=== PATIENT | male | born 1965 | race Two or more races ===

== ENCOUNTER 2023-07-03 21:29 | Inpatient (IN) | payer OTHER ==
[~2023-07-03] VITALS: Ht 180.3 cm; Wt 95.0 kg
[2023-07-03 22:30] VITALS: PULSE 107; RESP 16; O2SAT 98
[2023-07-03 22:38] LABS: Basophils # (auto) 0 10 ^3/uL (0-0.2); Basophils % (auto) 0.3 % (0.0-2.0); Eosinophils # (auto) 0 10 ^3/uL (0-0.8); Eosinophils % (auto) 0.1 % (0.0-7.0); Hematocrit 42.9 % (41.0-53.0); Hemoglobin 14.1 g/dL (13.5-17.5); Lymphocytes # (auto) 0.4 10 ^3/uL (0.4-5.4); Lymphocytes % (auto) 8.1 % (10.0-50.0); Mean Corpuscular Hemoglobin 30.1 pg (28.0-32.0); Mean Corpuscular Volume 91.1 fL (80.0-100.0); Monocytes # (auto) 0.1 10 ^3/uL (0-1.3); Monocytes % (auto) 2.7 % (0.0-12.0); Neutrophils # (auto) 4.8 10 ^3/uL (1.6-8.6); Neutrophils % (auto) 88.8 % (37.0-80.0); Nucleated Red Blood Cells % 0.1 %; Red Cell Distribution Width 13.9 % (11.8-14.3); White Blood Cell 5.4 10^3/uL (4.4-10.8)
[2023-07-03 22:44] LABS: Anion Gap 8 (5-15); Carbon Dioxide 26 mmol/L (20-30); Chloride 105 mmol/L (98-107); Potassium 4.4 mmol/L (3.5-5.1); Sodium 139 mmol/L (136-145)
[2023-07-03 22:45] LABS: Calcium 9.1 mg/dL (8.7-10.4)
[2023-07-03 22:49] LABS: Glucose 282 mg/dL (74-106)
[2023-07-03 22:50] LABS: Alkaline Phosphatase 72 U/L (46-116); BUN/Creatinine Ratio 7.5 (10.0-20.0); Blood Urea Nitrogen 11 mg/dL (9-23); Magnesium 1.9 mg/dL (1.6-2.6)
[2023-07-03 22:51] LABS: Albumin 4.4 g/dL (3.2-4.8); Aspartate Aminotransferase 26 U/L (13-40)
[2023-07-03 22:52] LABS: Bilirubin, Total 0.5 mg/dL (0.2-1.0); Total Protein 6.9 g/dL (5.7-8.2)
[2023-07-03 22:53] LABS: INR 1.09 (0.9-1.15); Partial Thromboplastin Time 27.9 SEC (24.5-34.5); Prothrombin Time 11.4 sec (9.3-11.8)
[2023-07-03 23:11] LABS: Alanine Aminotransferase 75 U/L (7-40)
[2023-07-04] VITALS (7 sets, daily range): BP systolic 93–121; BP diastolic 54–90; PULSE 70–99; RESP 18–22; TEMP 97.9–98.3; O2SAT 95–100
[2023-07-04] MEDS ORDERED: FUROSEMIDE 20 MG TAB PO ONE (02:15)
[2023-07-04] MEDS ORDERED: ASPirin 81 mg TAB PO ONE (02:15)
[2023-07-04] MEDS ORDERED: NITROGLYCERIN 0.4 MG SL TAB SL ONE (02:15)
[2023-07-04] MEDS ORDERED: ONDANSETRON HCL 4 MG/2 ML VIAL IV PRN (02:30)
[2023-07-04] MEDS ORDERED: DOCUSATE SOD 100 MG CAP PO PRN (02:30)
[2023-07-04] MEDS ORDERED: IBUPROFEN 600 MG TAB PO PRN (02:30)
[2023-07-04] MEDS ORDERED: HYDROcodone-ACET 5/325MG TAB PO PRN (02:30)
[2023-07-04] MEDS ORDERED: DEXTROSE (50%) 50ML SYRG IV PRN (02:30)
[2023-07-04] MEDS ORDERED: NITROGLYCERIN 0.4 MG SL TAB SL PRN (03:30)
[2023-07-04] MEDS ORDERED: MORPHINE SULFATE INJ 2 MG/ml SYRG IV PRN (03:30)
[2023-07-04 03:33] LABS: Urine Bacteria NONE SEEN /hpf (None Seen); Urine Blood Negative /uL (Negative); Urine Clarity Clear (Clear); Urine Color Yellow (Yellow); Urine Hyaline Cast FEW /lpf (0 - 2); Urine Mucus FEW (None Seen); Urine Protein, UAD TRACE (Negative); Urine Specific Gravity 1.019 (1.001-1.035); Urine Urobilinogen Normal (Negative); Urine WBC 2 /hpf (0 - 3); Urine pH 5.5 (5.0-8.0)
[2023-07-04 03:53] LABS: Amphetamine Screen, Urine Pos (NEGATIVE); Barbiturate Scree,Urine Neg (NEGATIVE); Benzodiazephine Screen, Urine Neg (NEGATIVE)
[2023-07-04 03:54] LABS: Cannabinoid Screen, Urine Pos (NEGATIVE); Cocaine Screen, Urine Neg (NEGATIVE); Opiate Scree,Urine Neg (NEGATIVE); Phencyclidine Screen, Urine Neg (NEGATIVE)
[2023-07-04] MEDS ORDERED: dilTIAZem 25 MG/5 ML VIAL IV ONE ×2 (04:00→06:00)
[2023-07-04 04:06] LABS: COVID19 ANTIGEN SOFIA FIA NEGATIVE (NEGATIVE); Rapid Influenza A Negative (Negative); Rapid Influenza B Negative (Negative)
[2023-07-04 05:54] LABS: Alanine Aminotransferase 70 U/L (7-40); Albumin 4.4 g/dL (3.2-4.8); Alkaline Phosphatase 66 U/L (46-116); Calcium 9.4 mg/dL (8.5-10.1); Carbon Dioxide 25 mmol/L (20-30); Chloride 105 mmol/L (98-107); Potassium 4.1 mmol/L (3.5-5.1)
[2023-07-04 05:55] LABS: Anion Gap 9 (5-15); Aspartate Aminotransferase 24 U/L (13-40); BUN/Creatinine Ratio 13.5 (10.0-20.0); Bilirubin, Total 0.7 mg/dL (0.2-1.0); Blood Urea Nitrogen 13 mg/dL (9-23); Glucose 118 mg/dL (74-106); Sodium 139 mmol/L (136-145); Total Protein 6.9 g/dL (5.7-8.2)
[2023-07-04 05:56] LABS: Basophils # (auto) 0 10 ^3/uL (0-0.2); Basophils % (auto) 0.4 % (0.0-2.0); Eosinophils # (auto) 0 10 ^3/uL (0-0.8); Hemoglobin 14.6 g/dL (13.5-17.5); Lymphocytes # (auto) 0.8 10 ^3/uL (0.4-5.4); Lymphocytes % (auto) 11.5 % (10.0-50.0); Mean Corpuscular Hemoglobin 30.3 pg (28.0-32.0); Mean Corpuscular Hgb Conc. 33.2 g/dL (32.0-36.0); Mean Corpuscular Volume 91.2 fL (80.0-100.0); Monocytes # (auto) 0.4 10 ^3/uL (0-1.3); Monocytes % (auto) 4.8 % (0.0-12.0); Neutrophils # (auto) 6.1 10 ^3/uL (1.6-8.6); Neutrophils % (auto) 83.3 % (37.0-80.0); Nucleated Red Blood Cells % 0.1 %; Red Blood Cells 4.83 10^6/uL (4.5-5.90); White Blood Cell 7.3 10^3/uL (4.4-10.8)
[2023-07-04] MEDS: SODIUM CHLOR 0.9% PF (SALINE LOCK) 10ML VIAL/SYR IV SCH ×3 (06:05→22:13)
[2023-07-04] MEDS ORDERED: InsuLIN REG 1unit/0.01ml Soln (100units/ml) SC SCH ×2 (07:00→22:00)
[2023-07-04] MEDS: ACCU-CHEK COMFORT CURVE STRIP VI SCH ×4 (07:00→22:18)
[2023-07-04] MEDS: CARVEDILOL 3.125 MG TAB PO SCH ×2 (09:49→22:15)
[2023-07-04] MEDS ORDERED: ASPirin 81 mg TAB PO SCH (10:00)
[2023-07-04] MEDS ORDERED: FUROSEMIDE 40 MG/4 ML VIAL IV SCH (10:00)
[2023-07-04] MEDS ORDERED: MAGNESIUM OXIDE 400 MG TAB PO ONE (11:00)
[2023-07-04] MEDS ORDERED: HYDR25TA4 PO (13:30)
[2023-07-04] MEDS ORDERED: LOSA25TA15 PO (13:30)
[2023-07-04] MEDS: FUROSEMIDE 40 MG/4 ML VIAL IV SCH (17:10)
[2023-07-05] VITALS (7 sets, daily range): BP systolic 98–136; BP diastolic 48–99; PULSE 49–96; RESP 17–20; TEMP 97.6–98.5; O2SAT 91–98
[2023-07-05] MEDS: SODIUM CHLOR 0.9% PF (SALINE LOCK) 10ML VIAL/SYR IV SCH ×3 (06:05→23:14)
[2023-07-05] MEDS: ACCU-CHEK COMFORT CURVE STRIP VI SCH ×4 (06:05→23:14)
[2023-07-05] MEDS: FUROSEMIDE 40 MG/4 ML VIAL IV SCH ×2 (06:05→17:45)
[2023-07-05 06:45] LABS: Basophils # (auto) 0.1 10 ^3/uL (0-0.2); Basophils % (auto) 0.7 % (0.0-2.0); Eosinophils # (auto) 0.1 10 ^3/uL (0-0.8); Eosinophils % (auto) 1.3 % (0.0-7.0); Hematocrit 48.8 % (41.0-53.0); Hemoglobin 16.5 g/dL (13.5-17.5); Lymphocytes # (auto) 2.4 10 ^3/uL (0.4-5.4); Lymphocytes % (auto) 29.4 % (10.0-50.0); Mean Corpuscular Hemoglobin 30.5 pg (28.0-32.0); Mean Corpuscular Hgb Conc. 33.7 g/dL (32.0-36.0); Mean Corpuscular Volume 90.4 fL (80.0-100.0); Monocytes # (auto) 0.7 10 ^3/uL (0-1.3); Monocytes % (auto) 8.2 % (0.0-12.0); Neutrophils % (auto) 60.4 % (37.0-80.0); Nucleated Red Blood Cells % 0.2 %; Red Cell Distribution Width 13.9 % (11.8-14.3); White Blood Cell 8.3 10^3/uL (4.4-10.8)
[2023-07-05 06:55] LABS: Alanine Aminotransferase 49 U/L (7-40); Albumin 4.3 g/dL (3.2-4.8); Alkaline Phosphatase 71 U/L (46-116); Aspartate Aminotransferase 17 U/L (13-40); BUN/Creatinine Ratio 16.2 (10.0-20.0); Bilirubin, Total 0.5 mg/dL (0.2-1.0); Blood Urea Nitrogen 17 mg/dL (9-23); Calcium 9.2 mg/dL (8.5-10.1); Chloride 103 mmol/L (98-107); Glucose 143 mg/dL (74-106); Potassium 4.2 mmol/L (3.5-5.1); Sodium 141 mmol/L (136-145); Total Protein 6.9 g/dL (5.7-8.2)
[2023-07-05] MEDS ORDERED: EMPAGLIFLOZIN 10 MG TAB PO SCH (07:00)
[2023-07-05 07:04] LABS: Anion Gap 5 (5-15); Carbon Dioxide 29 mmol/L (20-30)
[2023-07-05] MEDS: SPIRONOLACTONE 25 MG TAB PO SCH (10:04)
[2023-07-05] MEDS: LISINOPRIL 10 MG TAB PO SCH (10:04)
[2023-07-05] MEDS: CARVEDILOL 3.125 MG TAB PO SCH ×2 (10:05→23:17)
[2023-07-06] MEDS ORDERED: LOSA100T25 PO (00:39)
[2023-07-06] MEDS ORDERED: DICL75TA3 PO (00:51)
[2023-07-06] MEDS ORDERED: GABA100C PO (00:51)
[2023-07-06] MEDS ORDERED: CYCL-611 PO (00:51)
[2023-07-06 05:45] VITALS: BP 119/71; PULSE 86; RESP 20; TEMP 97.8; O2SAT 96
[2023-07-06] MEDS: ACCU-CHEK COMFORT CURVE STRIP VI SCH ×2 (06:50→11:34)
[2023-07-06] MEDS: FUROSEMIDE 40 MG/4 ML VIAL IV SCH ×2 (06:50→18:48)
[2023-07-06] MEDS: SODIUM CHLOR 0.9% PF (SALINE LOCK) 10ML VIAL/SYR IV SCH ×3 (06:50→22:04)
[2023-07-06 08:00] VITALS: BP 113/69; PULSE 53; PULSE 92; RESP 16; TEMP 98.3; O2SAT 96
[2023-07-06 09:00] VITALS: BP 113/69; PULSE 53; RESP 18; TEMP 98.3; O2SAT 96
[2023-07-06] MEDS: CARVEDILOL 3.125 MG TAB PO SCH ×2 (09:54→22:04)
[2023-07-06] MEDS: LISINOPRIL 10 MG TAB PO SCH (09:55)
[2023-07-06] MEDS: SPIRONOLACTONE 25 MG TAB PO SCH (09:55)
[2023-07-06] MEDS: AMIODARONE HCL 200 MG TAB PO SCH ×3 (10:00→22:03)
[2023-07-06] MEDS: APIXABAN 5 MG TAB PO SCH ×2 (10:00→22:03)
[2023-07-06] MEDS ORDERED: HYDR25TA5 PO (11:33)
[2023-07-06 12:57] VITALS: BP 122/90; PULSE 71; RESP 20; TEMP 98; O2SAT 92
[2023-07-06 20:00] VITALS: BP 105/66; PULSE 89; PULSE 95; RESP 20; TEMP 98.6; O2SAT 91
[2023-07-06 22:00] VITALS: BP 105/66; PULSE 95; RESP 20; TEMP 98.6; O2SAT 91
[2023-07-07] VITALS (7 sets, daily range): BP systolic 104–133; BP diastolic 70–92; PULSE 45–132; RESP 17–20; TEMP 98–98.5; O2SAT 94–96
[2023-07-07 05:33] LABS: Basophils # (auto) 0.1 10 ^3/uL (0-0.2); Eosinophils # (auto) 0.2 10 ^3/uL (0-0.8); Hemoglobin 17.8 g/dL (13.5-17.5); Monocytes # (auto) 0.6 10 ^3/uL (0-1.3); Neutrophils # (auto) 3.2 10 ^3/uL (1.6-8.6); White Blood Cell 6.6 10^3/uL (4.4-10.8)
[2023-07-07 05:37] LABS: Eosinophils % (auto) 3.6 % (0.0-7.0); Hematocrit 51.8 % (41.0-53.0); Lymphocytes # (auto) 2.5 10 ^3/uL (0.4-5.4); Lymphocytes % (auto) 37.6 % (10.0-50.0); Mean Corpuscular Hemoglobin 30.4 pg (28.0-32.0); Mean Corpuscular Hgb Conc. 34.3 g/dL (32.0-36.0); Mean Corpuscular Volume 88.7 fL (80.0-100.0); Monocytes % (auto) 9.7 % (0.0-12.0); Neutrophils % (auto) 48.1 % (37.0-80.0); Nucleated Red Blood Cells % 0.6 %; Red Blood Cells 5.84 10^6/uL (4.5-5.90); Red Cell Distribution Width 13.7 % (11.8-14.3)
[2023-07-07 05:42] LABS: Anion Gap 9 (5-15); Carbon Dioxide 29 mmol/L (20-30); Chloride 101 mmol/L (98-107); Potassium 4.1 mmol/L (3.5-5.1); Sodium 139 mmol/L (136-145)
[2023-07-07 05:43] LABS: Calcium 9.4 mg/dL (8.5-10.1)
[2023-07-07 05:47] LABS: BUN/Creatinine Ratio 17.9 (10.0-20.0); Blood Urea Nitrogen 17 mg/dL (9-23); Glucose 126 mg/dL (74-106)
[2023-07-07] MEDS: SODIUM CHLOR 0.9% PF (SALINE LOCK) 10ML VIAL/SYR IV SCH ×3 (06:00→21:50)
[2023-07-07] MEDS: FUROSEMIDE 40 MG/4 ML VIAL IV SCH (06:01)
[2023-07-07] MEDS ORDERED: AMIO200T33 PO (09:56)
[2023-07-07] MEDS ORDERED: FURO1TAB33 PO ×2 (09:56)
[2023-07-07] MEDS ORDERED: CAR3125T PO ×2 (09:56)
[2023-07-07] MEDS ORDERED: LISI10TA34 PO (09:56)
[2023-07-07] MEDS ORDERED: SPIR25TA PO (09:56)
[2023-07-07] MEDS ORDERED: APIX5TAB PO (09:56)
[2023-07-07] MEDS: SPIRONOLACTONE 25 MG TAB PO SCH (10:36)
[2023-07-07] MEDS: LISINOPRIL 10 MG TAB PO SCH (10:38)
[2023-07-07] MEDS: AMIODARONE HCL 200 MG TAB PO SCH ×2 (10:39→21:50)
[2023-07-07] MEDS: APIXABAN 5 MG TAB PO SCH ×2 (10:40→21:50)
[2023-07-07] MEDS ORDERED: CARVEDILOL 3.125 MG TAB PO ONE (11:00)
[2023-07-07] MEDS: FUROSEMIDE 20 MG TAB PO SCH (18:14)
[2023-07-07] MEDS: CARVEDILOL 3.125 MG TAB PO SCH (21:52)
[2023-07-08 04:46] VITALS: BP 104/68; PULSE 89; RESP 18; TEMP 98; O2SAT 96
[2023-07-08 06:27] LABS: Chloride 102 mmol/L (98-107); Potassium 4.3 mmol/L (3.5-5.1); Sodium 137 mmol/L (136-145)
[2023-07-08 06:28] LABS: Anion Gap 7 (5-15); Basophils # (auto) 0.1 10 ^3/uL (0-0.2); Calcium 9.5 mg/dL (8.5-10.1); Carbon Dioxide 28 mmol/L (20-30); Eosinophils # (auto) 0.2 10 ^3/uL (0-0.8); Lymphocytes % (auto) 38.3 % (10.0-50.0); Neutrophils # (auto) 3.1 10 ^3/uL (1.6-8.6); Nucleated Red Blood Cells % 0.3 %
[2023-07-08 06:31] LABS: Eosinophils % (auto) 3.6 % (0.0-7.0); Hematocrit 51.6 % (41.0-53.0); Hemoglobin 17.9 g/dL (13.5-17.5); Lymphocytes # (auto) 2.5 10 ^3/uL (0.4-5.4); Mean Corpuscular Hemoglobin 30.8 pg (28.0-32.0); Mean Corpuscular Hgb Conc. 34.7 g/dL (32.0-36.0); Mean Corpuscular Volume 88.6 fL (80.0-100.0); Monocytes # (auto) 0.6 10 ^3/uL (0-1.3); Monocytes % (auto) 9.6 % (0.0-12.0); Neutrophils % (auto) 47.5 % (37.0-80.0); Red Blood Cells 5.82 10^6/uL (4.5-5.90); Red Cell Distribution Width 13.9 % (11.8-14.3); White Blood Cell 6.5 10^3/uL (4.4-10.8)
[2023-07-08 06:33] LABS: Glucose 128 mg/dL (74-106)
[2023-07-08] MEDS: FUROSEMIDE 20 MG TAB PO SCH (06:33)
[2023-07-08] MEDS: SODIUM CHLOR 0.9% PF (SALINE LOCK) 10ML VIAL/SYR IV SCH ×2 (06:33→14:06)
[2023-07-08 06:34] LABS: BUN/Creatinine Ratio 19.4 (10.0-20.0); Blood Urea Nitrogen 18 mg/dL (9-23)
[2023-07-08 08:00] VITALS: BP 104/81; PULSE 79; PULSE 89; RESP 18; TEMP 98.2; O2SAT 94
[2023-07-08 09:20] VITALS: BP 104/81; PULSE 89; RESP 18; TEMP 98.2; O2SAT 94
[2023-07-08] MEDS ORDERED: CARV6.2551 PO (10:01)
[2023-07-08] MEDS ORDERED: FURO1TAB33 PO (10:03)
[2023-07-08] MEDS: LISINOPRIL 10 MG TAB PO SCH (10:43)
[2023-07-08] MEDS: AMIODARONE HCL 200 MG TAB PO SCH (10:43)
[2023-07-08] MEDS: CARVEDILOL 3.125 MG TAB PO SCH (10:43)
[2023-07-08] MEDS: SPIRONOLACTONE 25 MG TAB PO SCH (10:43)
[2023-07-08] MEDS: APIXABAN 5 MG TAB PO SCH (10:44)
[2023-07-08 12:53] VITALS: BP 102/60; PULSE 66; RESP 19; TEMP 98.4; O2SAT 95
== END 2023-07-08 14:00 | disposition home or self-care (01) | DRG 194 ==
LOC: ER 21:29 → TELE 07-04 03:29 → TELE-WESTW 07-04 06:22
PROVIDERS: ADMIT Internal Medicine Pulmonary Disease; ATTEND Student in an Organized Health Care Education/Training Program
DX: I11.0 Hypertensive heart disease with heart failure (principal); N17.9 Acute kidney failure, unspecified; I50.23 Acute on chronic systolic (congestive) heart failure; I42.8 Other cardiomyopathies; I47.19 Other supraventricular tachycardia; E66.9 Obesity, unspecified; F15.10 Other stimulant abuse, uncomplicated; F10.10 Alcohol abuse, uncomplicated; E11.65 Type 2 diabetes mellitus with hyperglycemia; F17.200 Nicotine dependence, unspecified, uncomplicated; G47.30 Sleep apnea, unspecified; Z20.822 Contact with and (suspected) exposure to COVID-19; I48.0 Paroxysmal atrial fibrillation; G89.4 Chronic pain syndrome; F19.10 Other psychoactive substance abuse, uncomplicated; Z91.148 Patient's other noncompliance with medication regimen for other reason; Z79.84 Long term (current) use of oral hypoglycemic drugs; Z91.199 Patient's noncompliance with other medical treatment and regimen due to unspecified reason; Z68.29 Body mass index [BMI] 29.0-29.9, adult; Z71.6 Tobacco abuse counseling; Y92.89 Other specified places as the place of occurrence of the external cause
CPT/HCPCS: 36415; 71045; 80048; 80053; 80307; 81001; 82962; 83036; 83735; 83880; 84443; 84484; 85025; 85610; 85730; 87426; 87804; 93005; 93306; 96374; 96376; 99291; G0378; J1815

== ENCOUNTER 2024-10-31 15:35 | Inpatient (IN) | payer MEDICAID, OTHER ==
[~2024-10-31] VITALS: Ht 180.3 cm; Wt 107.2 kg
[~2024-10-31 15:35] MED LIST: AMIO200T33 PO; APIX5TAB PO; CARV6.2551 PO; FURO1TAB33 PO; HYDR25TA5 PO; LISI10TA34 PO; LOSA100T25 PO; SPIR25TA PO
[2024-10-31] MEDS: SODIUM CHLORIDE 0.9% 1,000 ML IV ONE (16:00)
--- NOTE | 2024-10-31 16:03 | ECG ---
[facility] Test Date: 2024-10-31 Test Time: 15:50:01 Pat Name: SARAHI RG Department: ER Room: Gender: M Rough Rounder: ANTONIA : 1965 Requested By: WENDY GOOD Order Number: [id number] Reading MD: Measurements Intervals [place] Rate: 106 P: 28 MT: 150 QRS: -74 QRSD: 100 T: 64 QT: 344 QTc: 457 Interpretive Statements Sinus tachycardia Markedly posterior QRS axis Low voltage, extremity leads Please click the below link to view image of tracing.
[2024-10-31 16:31] LABS: Basophils # (auto) 0 10 ^3/uL (0-0.2); Basophils % (auto) 0.7 % (0.0-2.0); Eosinophils # (auto) 0.2 10 ^3/uL (0-0.8); Eosinophils % (auto) 2.3 % (0.0-7.0); Hematocrit 44.6 % (41.0-53.0); Lymphocytes # (auto) 2.2 10 ^3/uL (0.4-5.4); Lymphocytes % (auto) 28.9 % (10.0-50.0); Mean Corpuscular Hemoglobin 30.5 pg (28.0-32.0); Mean Corpuscular Hgb Conc. 33.7 g/dL (32.0-36.0); Mean Corpuscular Volume 90.5 fL (80.0-100.0); Monocytes # (auto) 0.7 10 ^3/uL (0-1.3); Monocytes % (auto) 8.8 % (0.0-12.0); Neutrophils # (auto) 4.5 10 ^3/uL (1.6-8.6); Neutrophils % (auto) 59.3 % (37.0-80.0); Nucleated Red Blood Cells % 0.2 %; Platelet Count (auto) 205 10^3/uL (140-450); Red Blood Cells 4.93 10^6/uL (4.5-5.90); Red Cell Distribution Width 13.8 % (11.8-14.3); White Blood Cell 7.6 10^3/uL (4.4-10.8)
[2024-10-31 16:58] VITALS: PULSE 93; RESP 12; O2SAT 92
[2024-10-31 17:10] LABS: Anion Gap 12 (5-15); Carbon Dioxide 22 mmol/L (20-31); Chloride 104 mmol/L (98-107); Sodium 138 mmol/L (136-145)
[2024-10-31 17:11] LABS: Calcium 9.8 mg/dL (8.7-10.4)
--- NOTE | 2024-10-31 17:13 | DVH ---
EXAM: CT HEAD WITHOUT CONTRAST HISTORY: dizzy, hypotensive COMPARISON: None TECHNIQUE: Axial images were obtained and reformatted in coronal and sagittal planes. All CT scans at this medical facility are performed using dose modulation techniques as appropriate t o a performed exam including the following: Automated exposure control was utilized; adjustment of th e MA and/or KV according to patient size; and use of iterative reconstruction technique. CT Dose: CTDI volume is 58.1 mGy. Dose-length product is 931.25 mGy*cm FINDINGS: Supratentorial Region: No evidence for large acute territorial ischemia. No intracranial hemorrhage is noted. Posterior Fossa: No acute abnormality. Brainstem: Unremarkable. Sellar/Suprasellar Region: Unremarkable. Ventricles, Cisterns, Sulci: Age-appropriate. Orbits: Unremarkable. Paranasal Sinuses: Unremarkable. Mastoid Air Cells: Unremarkable. Vasculature: Unremarkable. Bones/Soft Tissues: No acute abnormality. Other: None. IMPRESSION: 1. No acute intracranial process.
[2024-10-31 17:16] LABS: BUN/Creatinine Ratio 12.5 (10.0-20.0); Blood Urea Nitrogen 16 mg/dL (9-23); Glucose 101 mg/dL (74-106); Lipase 43 U/L (12-53); Magnesium 2.2 mg/dL (1.6-2.6)
[2024-10-31 17:18] LABS: Phosphorus 4.1 mg/dL (2.4-5.1)
--- NOTE | 2024-10-31 17:19 | DVH ---
CHEST RADIOGRAPH Indication: cxr Technique: Single frontal view of the chest was obtained COMPARISON: XY CHEST PORTABLE on DOS: 07/06/23, XY CHEST PORTABLE on DOS: 07/03/23 FINDINGS: Lines and Tubes: None Lungs: Clear Pleura: No effusion. No pneumothorax. Cardiomediastinal contours: Unremarkable Bones: Unremarkable IMPRESSION: No acute disease.
--- NOTE | 2024-10-31 17:24 | ED.PDOC ---
HPI (NEURO) HPI Comments 59 year old male presents to the ED with chief complaint of dizziness. Patient reports that around 45 minutes ago, he started to experience a headache with associated vision changes, nausea, and vomiting. Patient relays that he has a hard time remember what had happened to him earlier along with noting that when he checked his blood pressure, it came back 61/58. Patient states he has noticed blisters to his tongue recently, but is not sure what has caused them. Patient notes he is currently on Eliquis. Patient reports experiencing chest pain last night that has since resolved. Patient denies any diarrhea, abdominal pain, chest pain, SOB, or LOC. Chief Complaint: Low Blood Pressure Time Seen by MD: 17:19 Primary Care Provider: LAUREN Ashby Notes: Nurses Notes, Medications, Allergies Information Source: Patient Mode of Arrival: Ambulatory Severity: Moderate Dizziness/Weakness Severity: Unable to do activities Headache Severity: Moderate Timing: Hours Duration: Since onset Prehospital treatment: None Headache Quality: Aching Headache Location: Generalized Onset: At rest Circumstances: Spontaneous Symptoms: Vertigo, Change of vision, Vision loss Associated Signs and Symptoms: Headache, Nausea, Vomiting, Chest Pain, Blurred Vision Past Medical History PAST MEDICAL HISTORY: AFIB, CHF, DM, High Lipids, HTN, MD, Thyroid Surgical History: Denies all surgeries Family History Family History: Reviewed,noncontributory to illness Social History Smoker: Non-Smoker Alcohol: Denies ETOH Use Drugs: Denies Drug Use Lives In: Home Constitutional: denies: chills, diaphoresis, fatigue, fever, malaise, sweats, weakness, others EENTM: reports: blurred vision, others (Tongue blisters); denies: double vision, ear bleeding, ear discharge, ear drainage, ear pain, ear ringing, eye pain, eye redness, hearing loss, mouth pain, mouth swelling, nasal discharge, nose bleeding, nose congestion, nose pain, photophobia, tearing, throat pain, throat swelling, voice changes Respiratory: denies: cough, hemoptysis, orthopnea, SOB at rest, shortness of breath, SOB with excertion, stridor, wheezing, others Cardiovascular: reports: chest pain; denies: dizzy spells, diaphoresis, Dyspnea on exertion, edema, irregular heart beat, left arm pain, lightheadedness, palpitations, PND, syncope, others Gastrointestinal: reports: nausea, vomiting; denies: abdomen distended, abdominal pain, blood streaked bowels, constipated, diarrhea, dysphagia, difficulty swallowing, hematemesis, melena, poor appetite, poor fluid intake, rectal bleeding, rectal pain, others Genitourinary: denies: burning, dysuria, flank pain, frequency, hematuria, incontinence, penile discharge, penile sore, pain, testicle pain, testicle swelling, urgency, others Neurological: reports: dizziness, headache; denies: fainting, left sided numbness, left sided weakness, numbness, paresthesia, pre-existing deficit, right sided numbness, right sided weakness, seizure, speech problems, tingling, tremors, weakness, others Musculoskeletal: denies: back pain, gout, joint pain, joint swelling, muscle pain, muscle stiffness, neck pain, others Integumetry: denies: bruises, change in color, change in hair/nails, dryness, laceration, lesions, lumps, rash, wounds, others Allergic/Immunocompromised: denies: Difficulty Healing, Frequent Infections, Hives, Itching, others Hematologic/Lymphatic: denies: anemia, blood clots, easy bleeding, easy bruising, swollen glands, others Endocrine: denies: excessive hunger, excessive sweating, excessive thirst, excessive urination, flushing, intolerance to cold, intolerance to heat, unexplained weight gain, unexplained weight loss, others Psychiatric: denies: anxiety, bipolar disorder, depression, hopeless, panic disorder, schizophrenia, sleepless, suicidal, others All Other Systems: Reviewed and Negative Physical Exam General Appearance: No Apparent Distress, Normal HEENT: Normal ENT Inspection, PERRL/EOMI Neck: Full Range of Motion, Non-Tender, Normal, Normal Inspection Respiratory: Chest Non-Tender, Lungs Clear, No Accessory Muscle Use, No Respiratory Distress, Normal Breath Sounds Cardiovascular: No Edema, No JVD, No Murmur, No Gallop, Normal Peripheral Pulses, Regular Rate/Rhythm Breast Exam: Deferred Gastrointestinal: No Organomegaly, Non Tender, No Pulsatile Mass, Normal Bowel Sounds, Soft Genitalia: Deferred Pelvic: Deferred Rectal: Deferred Extremities: No calf tenderness, Normal capillary refill, Normal inspection, Normal range of motion, Non-tender, No pedal edema Musculoskeletal : Apperance: Normal Neurologic: Alert, joss house keeper II-XII nml as Tested, No Motor Deficits, Normal Affect, Normal Mood, No Sensory Deficits Cerebellar Function: Normal Reflexes: Normal Skin: Dry, Normal Color, Warm Lymphatic: No Adenopathy Was a procedure done? Was a procedure done?: No Differential Diagnosis (SZ) Seizure: Closed Head Injury, CVA/TIA, Hypocalcemia, Hypoglycemia, Hyponatremia, Meningitis, Encephalopathy CVA: CVA, Delirium Tremens, DKA, Encephalopathy General Weakness: Dehydration, Hypotension X-Ray, Labs, Meds, VS Vital Signs Date Time Temp Pulse Resp B/P (MAP) Pulse Ox O2 Delivery O2 Flow Rate FiO2 10/31/24 17:00 93 9 101/65 (77) 93 10/31/24 16:58 93 12 92 Room Air* 0 21 10/31/24 15:50 106 10/31/24 15:45 98.1 94 18 78/50 (59) 94 88/49 (62) Lab Test 10/31/24 19:28 10/31/24 19:27 10/31/24 16:35 10/31/24 16:16 Range/Units POC Glucose 84 89 70-106 mg/dl Troponin I High Sensitivity 3 L 3 L </=54 ng/L White Blood Count 7.6 4.4-10.8 10^3/uL Red Blood Count 4.93 4.5-5.90 10^6/uL Hemoglobin 15.0 13.5-17.5 g/dL Hematocrit 44.6 41.0-53.0 % Mean Corpuscular Volume 90.5 80.0-100.0 fL Mean Corpuscular Hemoglobin 30.5 28.0-32.0 pg Mean Corpuscular Hemoglobin Concent 33.7 32.0-36.0 g/dL Red Cell Distribution Width 13.8 11.8-14.3 % Platelet Count 205 140-450 10^3/uL Mean Platelet Volume 7.9 6.9-10.8 fL Neutrophils (%) (Auto) 59.3 37.0-80.0 % Lymphocytes (%) (Auto) 28.9 10.0-50.0 % Monocytes (%) (Auto) 8.8 0.0-12.0 % Eosinophils (%) (Auto) 2.3 0.0-7.0 % Basophils (%) (Auto) 0.7 0.0-2.0 % Neutrophils # (Auto) 4.5 1.6-8.6 10 ^3/uL Lymphocytes # (Auto) 2.2 0.4-5.4 10 ^3/uL Monocytes # (Auto) 0.7 0-1.3 10 ^3/uL Eosinophils # (Auto) 0.2 0-0.8 10 ^3/uL Basophils # (Auto) 0 0-0.2 10 ^3/uL Nucleated Red Blood Cells 0.2 % Sodium Level 138 136-145 mmol/L Potassium Level 3.5 3.5-5.1 mmol/L Chloride Level 104 98-107 mmol/L Carbon Dioxide Level 22 20-31 mmol/L Anion Gap 12 5-15 Blood Urea Nitrogen 16 9-23 mg/dL Creatinine 1.28 0.700-1.30 mg/dL Glomerular Filtration Rate Calc 64 >90 mL/min BUN/Creatinine Ratio 12.5 10.0-20.0 Serum Glucose 101 74-106 mg/dL Calcium Level 9.8 8.7-10.4 mg/dL Phosphorus Level 4.1 2.4-5.1 mg/dL Magnesium Level 2.2 1.6-2.6 mg/dL B-Type Natriuretic Peptide 19.34 0-100 pg/mL Lipase 43 12-53 U/L Thyroid Stimulating Hormone (TSH) 2.61 0.55-4.78 uIU/mL Test 10/31/24 15:51 Range/Units POC Glucose 103 70-106 mg/dl Current Medications Medications (Trade) Dose Ordered Sig/Estephania Route Start Time Stop Time Status Last Admin Sodium Chloride 1,000 ml @ 1,000 mls/hr Q1H ONCE IV 10/31/24 16:00 10/31/24 16:59 DC 10/31/24 16:00 X-Ray, Labs, Meds, VS Comment 59-year-old male here today with complaints of weakness and dizziness, patient found to be hypotensive with systolics in the 70s. Patient also noted transient chest pain. Patient does has a history of MD. patient on Eliquis. Labs overall reassuring with evidence of negative troponin and normal lactic acid. No significant electrolyte abnormalities. Patient is given fluids with some improvement in his blood pressure however stated that he still felt dizzy. Plan made to admit the patient for further evaluation of his dizziness and transient chest pain. Patient in agreement with the plan. Time of 1ST Reevaluation: 18:19 Reevaluation 1ST: Unchanged Patient Education/Counseling: Diagnosis, Treatment Family Education/Counseling: No Family Present Departure 1 Departure Time of Disposition: 20:12 Impression: Primary Impression: Hypotension Additional Impressions: Chest pain Dizziness Weakness History of heart attack Disposition: ADMITTED INPATIENT Condition: Guarded Critical Care Note Critical Care Time?: Yes (30 min-critical care time only) Stability Stability form required: No Heart Score Heart Score: Heart Score Response (Comments) Value History Highly Suspicious 2 EKG Normal 0 Age 45-64 1 Risk Factors >3 or Hx ASHD 2 Troponin Normal limit 0 Total 5 I personally scribed for WENDY GOOD MD ([email or web address]) on 10/31/24 at 17:24. Electronically submitted by Doug Ward ([email or web address]). WENDY GOOD MD Oct 31, 2024 17:24
[2024-10-31 17:58] LABS: Potassium 3.5 mmol/L (3.5-5.1)
--- NOTE | 2024-10-31 22:42 | DVHHPRES ---
History of Present Illness Resident Creating Document: ELIDIA COREY RESDIENT History of Present Illness This is a 59-year-old male with past medical history of AFib, heart failure reduced ejection fraction, diabetes, dyslipidemia, hypertension, hypothyroidism, sleep apnea, depression, and gout came to the hospital due to dizziness and lightheadedness. Per patient, the patient was going for lunch with family in car, which the patient suddenly felt dizziness, and blurry vision, gradually lost his vision. Upon return to the home, he checked his BP which was around 4 0s, upon repeated BP checkup was at the same level for 40 minutes. Upon arrival to the ER BP was at 60s. He also reports headache, lightheadedness, nausea, bloating, and mild localized left-sided chest pain (which increases with deep inspiration and reproducible with touching). PMHx:AFib, heart failure reduced ejection fraction, diabetes, dyslipidemia, hypertension, hypothyroidism, sleep apnea, depression, and gout PSHx: Neck surgery, right shoulder rotator cuff surgery Social history: Ex-smoker, ex methamphetamine user, uses walker for mobility due to but pain, denies any current drug use Home medication: Lisinopril, allopurinol, colchicine, levothyroxine, Entresto, carvedilol, Lasix, Ozempic, Eliquis, spironolactone, citalopram, atorvastatin, Allergic history: No known allergies Review of Systems Review of Systems General: Reports dizziness, lightheadedness HEENT: Reports headache and visual loss Cardiovascular: Denies chest pain, palpitations, dyspnea on exertion, orthopnea, or claudication. Respiratory: No cough, and wheezing. Gastrointestinal: Reports nausea Genitourinary: No dysuria, hematuria, discharge, frequency, urgency, nocturia, incontinence, and urinary retention. Endocrine: No heat or cold intolerance, polydipsia, polyuria, and polyphagia. Neurological: No dizziness, extremity weakness and numbness, tremors, gait disturbance, seizures, and memory impairment. Psychiatric: Denies depression, anxiety,or insomnia. Musculoskeletal: Denies neck pain, stiffness and swelling, back pain, muscle weakness, joint pain, stiffness, swelling, or limited range of motion. Skin: No rashes, itching, skin lesion, changes in hair, nail, skin texture and breast. Hematologic/Lymphatic: Denies easy bruising, bleeding tendencies, or lymph node enlargement. Allergies: Coded Allergies: NO KNOWN ALLERGIES (Unverified , 07/03/23) Exam Vital Signs Vital Signs Date Time Temp Pulse Resp B/P (MAP) Pulse Ox O2 Delivery O2 Flow Rate FiO2 10/31/24 20:00 98.2 97 9 94/68 (77) 93 98.2 10/31/24 19:30 Room Air* 0 21 Exam General Appearance: Alert, Oriented X3, Cooperative, No acute distress HEENT: Painful oral to rashes, likely aphthous ulcer Respiratory: Clear to auscultation, Normal air movement Cardiovascular: Regular rate, Normal S1, Normal S2, No murmurs, no chest wall tenderness Abdominal: Normal bowel sounds, Soft, No tenderness, No hepatospenomegaly, No masses Extremities: No clubbing, No cyanosis, No edema, Normal pulses, No tenderness/swelling Skin: Red itchy maculopapular rashes on the left side face Neuro: Normal gait, Normal speech, Strength at 5/5 X4 ext, Normal tone, Sensation intact, Cranial nerves 3-12 NL, Reflexes 2+ Psych/Mental Status: Mental status NL, Mood NL Labs/Xrays Labs Test 10/31/24 19:28 10/31/24 16:35 10/31/24 16:16 Range/Units POC Glucose 84 70-106 mg/dl Troponin I High Sensitivity 3 L </=54 ng/L White Blood Count 7.6 4.4-10.8 10^3/uL Red Blood Count 4.93 4.5-5.90 10^6/uL Hemoglobin 15.0 13.5-17.5 g/dL Hematocrit 44.6 41.0-53.0 % Mean Corpuscular Volume 90.5 80.0-100.0 fL Mean Corpuscular Hemoglobin 30.5 28.0-32.0 pg Mean Corpuscular Hemoglobin Concent 33.7 32.0-36.0 g/dL Red Cell Distribution Width 13.8 11.8-14.3 % Platelet Count 205 140-450 10^3/uL Mean Platelet Volume 7.9 6.9-10.8 fL Neutrophils (%) (Auto) 59.3 37.0-80.0 % Lymphocytes (%) (Auto) 28.9 10.0-50.0 % Monocytes (%) (Auto) 8.8 0.0-12.0 % Eosinophils (%) (Auto) 2.3 0.0-7.0 % Basophils (%) (Auto) 0.7 0.0-2.0 % Neutrophils # (Auto) 4.5 1.6-8.6 10 ^3/uL Lymphocytes # (Auto) 2.2 0.4-5.4 10 ^3/uL Monocytes # (Auto) 0.7 0-1.3 10 ^3/uL Eosinophils # (Auto) 0.2 0-0.8 10 ^3/uL Basophils # (Auto) 0 0-0.2 10 ^3/uL Nucleated Red Blood Cells 0.2 % Sodium Level 138 136-145 mmol/L Potassium Level 3.5 3.5-5.1 mmol/L Chloride Level 104 98-107 mmol/L Carbon Dioxide Level 22 20-31 mmol/L Anion Gap 12 5-15 Blood Urea Nitrogen 16 9-23 mg/dL Creatinine 1.28 0.700-1.30 mg/dL Glomerular Filtration Rate Calc 64 >90 mL/min BUN/Creatinine Ratio 12.5 10.0-20.0 Serum Glucose 101 74-106 mg/dL Calcium Level 9.8 8.7-10.4 mg/dL Phosphorus Level 4.1 2.4-5.1 mg/dL Magnesium Level 2.2 1.6-2.6 mg/dL B-Type Natriuretic Peptide 19.34 0-100 pg/mL Lipase 43 12-53 U/L Thyroid Stimulating Hormone (TSH) 2.61 0.55-4.78 uIU/mL Assessment/Plan Assessment/Plan Dizziness and lightheadedness likely due to hypotension Hypotension, likely due to hypovolemia/drug-induced History of heart failure with reduced ejection fraction History of AFib, currently EKGs shows normal sinus rhythm History of hypertension Head CT scan is normal Echo from May 18, 2023 shows global hypokinesia with EF 40% Held lisinopril, Entresto, carvedilol, Lasix and spironolactone due to low BP IV fluid Continue Eliquis History of gout Continue colchicine and allopurinol History of hypothyroidism Continue levothyroxine History of dyslipidemia Continue atorvastatin Sleep apnea BiPAP at night Possible aphthous ulcer Magic mouthwash Maculopapular rashes Patient has maculopapular red itchy rashes on the left side of the face since 1 day Monitoring DIET: Cardiac diet DVT PROPHYLAXIS: Eliquis CODE STATUS: Goal of care discussed for more than 21 minutes, full code DISPOSITION: Telemetry Patient's status and paln discussed with the patient and patient's . Case discussed with Dr. Strong. Plan discussed with: Patient, Other (RN) Date of Service: Nov 01, 2024 Billing Provider: TANIA STRONG MD Common Visit Codes: [id number] INP/OBS CARE (HIGH) ELIDIA COREY RESDIENT Oct 31, 2024 22:42 TANIA STRONG MD Nov 02, 2024 09:32
[2024-10-31] MEDS ORDERED: NITROGLYCERIN 0.4 MG SL TAB SL PRN ×2 (22:45→23:00)
[2024-10-31] MEDS ORDERED: MORPHINE SULFATE INJ 2 MG/ml SYRG IV PRN ×2 (22:45→23:00)
[2024-11-01] VITALS (12 sets, daily range): BP systolic 95–128; BP diastolic 53–86; PULSE 63–104; RESP 17–18; TEMP 97.5–98.3; O2SAT 92–96
[2024-11-01] MEDS ORDERED: SACU1TAB4 PO (01:20)
[2024-11-01] MEDS ORDERED: DICL1GEL59 EX (01:20)
[2024-11-01] MEDS ORDERED: CARV12.544 PO (01:20)
[2024-11-01] MEDS ORDERED: SPIR25TA8 PO (01:20)
[2024-11-01] MEDS ORDERED: ALL100T GT (01:20)
[2024-11-01] MEDS ORDERED: INDO-34 PO (01:20)
[2024-11-01] MEDS ORDERED: INSU1INJ19 SC (01:20)
[2024-11-01] MEDS ORDERED: ATOR-507 PO (01:20)
[2024-11-01] MEDS ORDERED: GABA100C PO (01:20)
[2024-11-01] MEDS ORDERED: COLC1CAP PO (01:20)
[2024-11-01] MEDS ORDERED: SEMA2INJ3 SC (01:20)
[2024-11-01] MEDS ORDERED: LEVO88TA2 PO (01:20)
[2024-11-01] MEDS ORDERED: IBUP-1455 PO (01:20)
[2024-11-01] MEDS ORDERED: FURO40TA4 PO (01:20)
[2024-11-01] MEDS ORDERED: CHOL1TAB30 PO (01:20)
[2024-11-01] MEDS: ALLOPURINOL 100 MG TAB PO ONE (01:33)
[2024-11-01] MEDS: COLCHICINE 0.6 MG CAP PO ONE (01:33)
[2024-11-01] MEDS: ATORVASTATIN 20 MG TAB PO ONE (01:33)
[2024-11-01] MEDS: LEVOTHYROXINE SODIUM 100 MCG TAB PO SCH (05:35)
[2024-11-01] MEDS: SODIUM CHLORIDE 0.9% 1,000 ML IV ONE (06:18)
[2024-11-01 06:47] LABS: Basophils # (auto) 0 10 ^3/uL (0-0.2); Basophils % (auto) 0.9 % (0.0-2.0); Eosinophils # (auto) 0.2 10 ^3/uL (0-0.8); Eosinophils % (auto) 3.9 % (0.0-7.0); Hematocrit 40.3 % (41.0-53.0); Hemoglobin 13.7 g/dL (13.5-17.5); Lymphocytes # (auto) 1.8 10 ^3/uL (0.4-5.4); Lymphocytes % (auto) 38.8 % (10.0-50.0); Mean Corpuscular Hemoglobin 30.7 pg (28.0-32.0); Mean Corpuscular Hgb Conc. 34.1 g/dL (32.0-36.0); Mean Corpuscular Volume 89.9 fL (80.0-100.0); Monocytes # (auto) 0.5 10 ^3/uL (0-1.3); Monocytes % (auto) 10.4 % (0.0-12.0); Neutrophils # (auto) 2.2 10 ^3/uL (1.6-8.6); Nucleated Red Blood Cells % 0.1 %; Platelet Count (auto) 153 10^3/uL (140-450); Red Blood Cells 4.48 10^6/uL (4.5-5.90); Red Cell Distribution Width 14.1 % (11.8-14.3); White Blood Cell 4.7 10^3/uL (4.4-10.8)
[2024-11-01] MEDS: MAGIC MOUTHWASH 55 ML SUSP MT ONE (07:00)
[2024-11-01 07:03] LABS: COVID19 ANTIGEN SOFIA FIA NEGATIVE (NEGATIVE); Rapid Influenza A Negative (Negative); Rapid Influenza B Negative (Negative)
[2024-11-01 07:15] LABS: Alanine Aminotransferase 21 U/L (7-40); Albumin 3.9 g/dL (3.2-4.8); Alkaline Phosphatase 73 U/L (46-116); Anion Gap 7 (5-15); BUN/Creatinine Ratio 14.3 (10.0-20.0); Blood Urea Nitrogen 15 mg/dL (9-23); Calcium 8.8 mg/dL (8.7-10.4); Carbon Dioxide 27 mmol/L (20-31); Chloride 103 mmol/L (98-107); Potassium 3.6 mmol/L (3.5-5.1); Sodium 137 mmol/L (136-145)
[2024-11-01 07:16] LABS: Aspartate Aminotransferase 9 U/L (13-40); Bilirubin, Total 0.7 mg/dL (0.2-1.0); Glucose 113 mg/dL (74-106); Total Protein 5.8 g/dL (5.7-8.2)
[2024-11-01] MEDS: APIXABAN 5 MG TAB PO SCH (09:43)
[2024-11-01] MEDS: COLCHICINE 0.6 MG CAP PO SCH (09:43)
[2024-11-01] MEDS: ALLOPURINOL 100 MG TAB PO SCH (09:43)
[2024-11-01 10:23] LABS: Urine Bacteria None Seen /hpf (None Seen)
[2024-11-01 10:34] LABS: Urine Blood Negative /uL (Negative); Urine Clarity Clear (Clear); Urine Color Light-Yellow (Yellow); Urine Protein, UAD Negative (Negative); Urine Squamous Epithelial Cell FEW /hpf (<5); Urine Urobilinogen Normal (Negative); Urine WBC 1 /HPF (0-3); Urine pH 5.5 (5.0-9.0)
[2024-11-01 10:59] LABS: Amphetamine Screen, Urine Neg (NEGATIVE); Barbiturate Scree,Urine Neg (NEGATIVE); Benzodiazephine Screen, Urine Neg (NEGATIVE); Cannabinoid Screen, Urine Neg (NEGATIVE); Cocaine Screen, Urine Neg (NEGATIVE); Opiate Scree,Urine Neg (NEGATIVE); Phencyclidine Screen, Urine Neg (NEGATIVE)
[2024-11-01] MEDS: MAGIC MOUTHWASH 55 ML SUSP MT SCH (12:00)
--- NOTE | 2024-11-01 15:58 | DVHPNRES ---
Progress Note Date Seen: Nov 01, 2024 Resident Creating Document: ANGEL BUCK RESIDENT Medical Necessity Reason Pt with a Central, PICC or Fol: No Subjective Review of Systems This is a 59-year-old male with past medical history of AFib, heart failure reduced ejection fraction, diabetes, dyslipidemia, hypertension, hypothyroidism, sleep apnea, depression, and gout came to the hospital due to dizziness and lightheadedness. Per patient, the patient was going for lunch with family in car, which the patient suddenly felt dizziness, and blurry vision, gradually lost his vision. Upon return to the home, he checked his BP which was around 40s, upon repeated BP checkup was at the same level for 40 minutes. Upon arrival to the ER BP was at 60s. He also reports headache, lightheadedness, nausea, bloating, and mild localized left-sided chest pain which increases with deep inspiration and reproducible with touching. Patient was seen and examined on the bedside. Mentioned improvement of dizziness and mild chest discomfort. No other active complains Constitutional: No: Fever, Chills, Sweats, Weakness, Malaise, Other Eyes: No: Pain, Vision change, Conjunctivae inflammation, Eyelid inflammation, Other, Redness ENT: No: Ear pain, Ear discharge, Nose pain, Nose discharge, Nose congestion, Mouth pain, Mouth swelling, Throat pain, Throat swelling, Other Respiratory: Shortness of breath, improving No: Cough, Dry,Wheezing, Hemoptysis, Pleuritic Pain, Sputum, Wheezing, Other Cardiovascular: Lt Headedness, No: Chest Pain, Palpitations, Orthopnea, Paroxysmal Noc. Dyspnea, Edema, Other Gastrointestinal: No: Nausea, Vomiting, Abdominal Pain, Diarrhea, Constipation, Melena, Hematochezia, Other Musculoskeletal: No: other, neck pain, shoulder pain, arm pain, back pain, hand pain, leg pain, foot pain Neurological:; No: Weakness, Numbness, Incoordination, Change in speech, Confusion, Seizures Objective vital signs Vital Sign Date Time Temp Pulse Resp B/P (MAP) Pulse Ox O2 Delivery O2 Flow Rate FiO2 11/01/24 12:55 97.7 75 18 118/71 (87) 96 97.7 11/01/24 08:55 Room Air* 0 21 Total Intake and Output 10/31/24 10/31/24 11/01/24 15:00 23:00 07:00 Intake Total 1000 ml 120 ml Balance 1000 ml 120 ml medications Current Medications Medications Dose Ordered Sig/Estephania Route Start Time Stop Time Status Last Admin Dose Admin Nitroglycerin 0.4 mg Q5MINP PRN SL 10/31/24 23:00 Apixaban 5 mg BID PO 11/01/24 10:00 11/01/24 09:43 5 MG Atorvastatin Calcium 40 mg HS PO 11/01/24 22:00 Colchicine 0.6 mg DAILY PO 11/01/24 10:00 11/01/24 09:43 0.6 MG Allopurinol 200 mg DAILY PO 11/01/24 10:00 11/01/24 09:43 200 MG Levothyroxine Sodium 100 mcg QAM@0600 PO 11/01/24 06:00 11/01/24 05:35 100 MCG Al Hydrox/Mg Hydrox/Simethicone 5 ml QID MT 11/01/24 12:00 Examination Physical examination: General Appearance: Alert, Oriented X3, Cooperative, No acute distress HEENT: Atraumatic, PERRLA, EOMI, Mucous membrane moist/pink, possible apthous ulcer Respiratory: Clear to auscultation, Normal air movement Cardiovascular: Regular rate, Normal S1, Normal S2, No murmurs, no chest wall tenderness Abdominal: Normal bowel sounds, Soft, No tenderness, No hepatospenomegaly, No masses Extremities: No clubbing, No cyanosis, No edema, Normal pulses, No tenderness/swelling Skin: Itchy rashes, in the lt side of face, No breakdown, No significant lesion Neuro: Normal gait, Normal speech, Strength at 5/5 X4 ext, Normal tone, Sensation intact, grossly intact cranial nerves. Psych/Mental Status: Mental status NL, Mood NL laboratory and microbiology Laboratory Tests 11/01/24 06:15 Test 11/01/24 06:15 Range/Units Serum Glucose 113 H 74-106 mg/dL Labs and/or images reviewed: Labs reviewed by me, Image(s) reviewed by me Problem List/Assessment/Plan Problem List/Assessment/Plan Assessment/Plan # Dizziness and lightheadedness likely due to hypotension # Hypotension, likely due to hypovolemia/drug-induced # History of heart failure with reduced ejection fraction # Parroxysmal atrial fibrillation with nsecondary hypercoagulable state, currently in sinus rhythm # History of hypertension - Head CT scan is normal - Echo from May 18, 2023 shows global hypokinesia with EF 40% - Hold lisinopril, Entresto, carvedilol, Lasix and spironolactone due to low BP - IV fluid 2 L bolus given - Continue Eliquis 5 mg b.i.d - Ordered echo # History of gout - Continue colchicine 0.6 mg and allopurinol 200 mg daily. # History of hypothyroidism - Continue levothyroxine 100 mcg daily # History of dyslipidemia - Continue atorvastatin 40 mg daily. # History of obstructive sleep apnea - BiPAP at night # Possible aphthous ulcer - Magic mouthwash # Maculopapular rashes - Patient has maculopapular red itchy rashes on the left side of the face since 1 day - Monitoring DIET: Cardiac diet DVT PROPHYLAXIS: Eliquis CODE STATUS: Goal of care discussed for more than 21 minutes, full code DISPOSITION: Telemetry Plan discussed with Dr. Ocasio Plan discussed with: Patient, Other My Orders My Orders Orders - ANGEL BUCK Procedure Category Date Status Time Communication Order ORDERS 11/01/24 Transmitted 08:23 Orthostatic Vital ORDERS 11/01/24 Transmitted Signs 13:55 Date of Service: Nov 01, 2024 Billing Provider: SYED LUJAN MD Common Visit Codes: [id number] INP/OBS CARE(HIGH) ANGEL BUCK Nov 01, 2024 15:58 SYED LUJAN MD Nov 03, 2024 00:29
[2024-11-01] MEDS: ATORVASTATIN 20 MG TAB PO SCH (21:00)
[2024-11-02] VITALS (8 sets, daily range): BP systolic 92–127; BP diastolic 49–90; PULSE 74–85; RESP 17–20; TEMP 97.5–98.2; O2SAT 94–98
[2024-11-02 08:42] LABS: Basophils # (auto) 0 10 ^3/uL (0-0.2); Basophils % (auto) 0.8 % (0.0-2.0); Eosinophils # (auto) 0.2 10 ^3/uL (0-0.8); Eosinophils % (auto) 3.9 % (0.0-7.0); Hematocrit 40.4 % (41.0-53.0); Hemoglobin 13.6 g/dL (13.5-17.5); Lymphocytes # (auto) 1.4 10 ^3/uL (0.4-5.4); Lymphocytes % (auto) 36.5 % (10.0-50.0); Mean Corpuscular Hemoglobin 30.3 pg (28.0-32.0); Mean Corpuscular Hgb Conc. 33.7 g/dL (32.0-36.0); Mean Corpuscular Volume 89.8 fL (80.0-100.0); Monocytes # (auto) 0.3 10 ^3/uL (0-1.3); Monocytes % (auto) 7.8 % (0.0-12.0); Nucleated Red Blood Cells % 0.1 %; Platelet Count (auto) 157 10^3/uL (140-450); Red Cell Distribution Width 13.7 % (11.8-14.3); White Blood Cell 3.9 10^3/uL (4.4-10.8)
[2024-11-02 09:14] LABS: Anion Gap 10 (5-15); Calcium 9.4 mg/dL (8.7-10.4); Carbon Dioxide 24 mmol/L (20-31); Potassium 3.7 mmol/L (3.5-5.1); Sodium 141 mmol/L (136-145)
[2024-11-02 09:20] LABS: BUN/Creatinine Ratio 13.7 (10.0-20.0); Blood Urea Nitrogen 10 mg/dL (9-23); Glucose 97 mg/dL (74-106)
[2024-11-02 09:30] LABS: Chloride 107 mmol/L (98-107)
[2024-11-02] MEDS ORDERED: FURO1TAB33 PO (13:57)
[2024-11-02] MEDS ORDERED: METO25TA93 PO (13:57)
--- NOTE | 2024-11-02 14:11 | DVHDSRES ---
Discharge Summary Date of Admission Resident Creating Document: ANGEL BUCK RESIDENT Oct 31, 2024 at 22:51 Date of Discharge: Nov 02, 2024 Admitting Diagnosis # Dizziness and lightheadedness likely due to hypotension # Hypotension, likely due to hypovolemia/drug-induced Wounds: No wound was present Labs/Diagnostic Data: Laboratory Results Test 11/02/24 07:40 11/01/24 08:30 11/01/24 06:15 11/01/24 05:20 White Blood Count 3.9 10^3/uL (4.4-10.8) Red Blood Count 4.50 10^6/uL (4.5-5.90) Hemoglobin 13.6 g/dL (13.5-17.5) Hematocrit 40.4 % (41.0-53.0) Mean Corpuscular Volume 89.8 fL (80.0-100.0) Mean Corpuscular Hemoglobin 30.3 pg (28.0-32.0) Mean Corpuscular Hemoglobin Concent 33.7 g/dL (32.0-36.0) Red Cell Distribution Width 13.7 % (11.8-14.3) Platelet Count 157 10^3/uL (140-450) Mean Platelet Volume 7.8 fL (6.9-10.8) Neutrophils (%) (Auto) 51.0 % (37.0-80.0) Lymphocytes (%) (Auto) 36.5 % (10.0-50.0) Monocytes (%) (Auto) 7.8 % (0.0-12.0) Eosinophils (%) (Auto) 3.9 % (0.0-7.0) Basophils (%) (Auto) 0.8 % (0.0-2.0) Neutrophils # (Auto) 2.0 10 ^3/uL (1.6-8.6) Lymphocytes # (Auto) 1.4 10 ^3/uL (0.4-5.4) Monocytes # (Auto) 0.3 10 ^3/uL (0-1.3) Eosinophils # (Auto) 0.2 10 ^3/uL (0-0.8) Basophils # (Auto) 0 10 ^3/uL (0-0.2) Nucleated Red Blood Cells 0.1 % Sodium Level 141 mmol/L (136-145) Potassium Level 3.7 mmol/L (3.5-5.1) Chloride Level 107 mmol/L (98-107) Carbon Dioxide Level 24 mmol/L (20-31) Anion Gap 10 (5-15) Blood Urea Nitrogen 10 mg/dL (9-23) Creatinine 0.73 mg/dL (0.700-1.30) Glomerular Filtration Rate Calc 105 mL/min (>90) BUN/Creatinine Ratio 13.7 (10.0-20.0) Serum Glucose 97 mg/dL (74-106) Calcium Level 9.4 mg/dL (8.7-10.4) Urine Color Light-yellow (Yellow) Urine Clarity Clear (Clear) Urine pH 5.5 (5.0-9.0) Urine Specific [place] 1.020 (1.001-1.035) Urine Protein Negative (Negative) Urine Ketones Negative (Negative) Urine Blood Negative /uL (Negative) Urine Nitrite Negative (Negative) Urine Bilirubin Negative (Negative) Urine Urobilinogen Normal mg/dL (Negative) Urine Leukocyte Esterase Negative /uL (Negative) Urine RBC None seen /hpf (0 - 3) Urine Microscopic WBC 1 /HPF (0-3) Urine Squamous Epithelial Cells Few /hpf (<5) Urine Bacteria None seen /hpf (None Seen) Urine Glucose 4+ mg/dL (Normal) Urine Opiates Screen Neg (NEGATIVE) Urine Fentanyl Screen Neg (NEGATIVE) Urine Barbiturates Screen Neg (NEGATIVE) Urine Phencyclidine Screen Neg (NEGATIVE) Urine Amphetamines Screen Neg (NEGATIVE) Urine Benzodiazepines Screen Neg (NEGATIVE) Urine Cocaine Screen Neg (NEGATIVE) Urine Cannabinoids Screen Neg (NEGATIVE) Total Bilirubin 0.7 mg/dL (0.2-1.0) Aspartate Amino Transferase (AST) 9 U/L (13-40) Alanine Aminotransferase (ALT) 21 U/L (7-40) Alkaline Phosphatase 73 U/L (46-116) Total Protein 5.8 g/dL (5.7-8.2) Albumin 3.9 g/dL (3.2-4.8) Thyroid Stimulating Hormone (TSH) 2.44 uIU/mL (0.55-4.78) Influenza Type A Antigen Negative (Negative) Influenza Type B Antigen Negative (Negative) SARS-CoV-2 Antigen (Rapid) Negative (NEGATIVE) Test 10/31/24 19:28 10/31/24 16:35 10/31/24 16:16 POC Glucose 84 mg/dl (70-106) Troponin I High Sensitivity 3 ng/L (</=54) Phosphorus Level 4.1 mg/dL (2.4-5.1) Magnesium Level 2.2 mg/dL (1.6-2.6) B-Type Natriuretic Peptide 19.34 pg/mL (0-100) Lipase 43 U/L (12-53) Other Laboratory Tests 11/02/24 07:40 Brief Hx & Hospital Course: This is a 59-year-old male with past medical history of AFib, heart failure reduced ejection fraction, diabetes, dyslipidemia, hypertension, hypothyroidism, sleep apnea, depression, and gout came to the hospital due to dizziness and lightheadedness. Per patient, the patient was going for lunch with family in car, which the patient suddenly felt dizziness, and blurry vision, gradually lost his vision. Upon return to the home, he checked his BP which was around 40s, upon repeated BP checkup was at the same level for 40 minutes. Upon arrival to the ER BP was at 60s. He also reports headache, lightheadedness, nausea, bloating, and mild localized left-sided chest pain which increases with deep inspiration and reproducible with touching. Hospital Course: initially presented with dizziness and hypotension likely due to drug-induced. cholestatic vital was negative and head CT scan was normal. Hold GDMT lisinopril, Entresto, carvedilol, Lasix and spironolactone and patient was treated with IV fluid 2 L bolus and blood pressure was improved and almost came back to normal. patient has a paroxysmal atrial fibrillation but currently was in sinus rhythm and we also continued home medication Eliquis 5 mg b.i.d., levothyroxine 100 mcg daily, colchicine 0.6 mg ,allopurinol 200 mg daily, and atorvastatin 40 mg at HS. Echo on 11/02/2024 demonstrated left ventricular EF of 55%, lateral free wall hypokinesis and EF of right ventricle is 40% and echo from April, showed global hypokinesis with EF 40%. patient has improved ejection fraction with GDMT. consideration of GDM T was done and prescribed metoprolol XL 12.5 mg daily, Lasix 20 mg p.o. daily and hold Entresto and spironolactone for now and advised the patient to follow up with Cardiology in 1-2 weeks for reconciliation of heart failure medication. Discharge diagnosis: # Dizziness and lightheadedness likely due to hypotension # Hypotension, likely due to hypovolemia/drug-induced # History of heart failure with reduced ejection fraction # Paroxysmal atrial fibrillation with secondary hypercoagulable state, currently in sinus rhythm # History of hypertension # History of gout # History of hypothyroidism # History of dyslipidemia # History of obstructive sleep apnea # Possible aphthous ulcer # Maculopapular rashes Discharge Plan: Disposition: Home Medications: Metoprolol XL 12.5 mg daily, Laxix 20 mg daily and continue apixaban 5 mg b.i.d., colchicine 0.6 mg daily, allopurinol 200 mg daily, levothyroxine 100 mcg at q.a.m. Follow up : PCP in 1 week Cardiology in 1 to 2 week Consults/Reason for consult No consultation was done Operations or Procedures CHEST RADIOGRAPH Indication: cxr Technique: Single frontal view of the chest was obtained COMPARISON: XY CHEST PORTABLE on DOS: 07/06/23, XY CHEST PORTABLE on DOS: 07/03/23 FINDINGS: Lines and Tubes: None Lungs: Clear Pleura: No effusion. No pneumothorax. Cardiomediastinal contours: Unremarkable Bones: Unremarkable IMPRESSION: No acute disease. EXAM: CT HEAD WITHOUT CONTRAST HISTORY: dizzy, hypotensive COMPARISON: None TECHNIQUE: Axial images were obtained and reformatted in coronal and sagittal planes. All CT scans at this medical facility are performed using dose modulation techniques as appropriate to a performed exam including the following: Automated exposure control was utilized; adjustment of the MA and/or KV according to patient size; and use of iterative reconstruction technique. CT Dose: CTDI volume is 58.1 mGy. Dose-length product is 931.25 mGy*cm FINDINGS: Supratentorial Region: No evidence for large acute territorial ischemia. No intracranial hemorrhage is noted. Posterior Fossa: No acute abnormality. Brainstem: Unremarkable. Sellar/Suprasellar Region: Unremarkable. Ventricles, Cisterns, Sulci: Age-appropriate. Orbits: Unremarkable. Paranasal Sinuses: Unremarkable. Mastoid Air Cells: Unremarkable. Vasculature: Unremarkable. Bones/Soft Tissues: No acute abnormality. Other: None. IMPRESSION: 1. No acute intracranial process. EXAM: Two-dimensional and M-mode echocardiogram with Doppler and color Doppler. Blood Pressure: 98/70 mmHg INDICATION Dizziness RISK FACTORS Obesity: Height: 5'11", Weight: 235 DIMENSIONS LVDd (3.8-5.7cm) LA (2D) 3.7 (1.9-4.0cm) Aortic Root (2.0-3.7cm) EF (%) 58.0 (55-70%) Rt. Atrium 3.9 (1.9-4.0cm) Asc. Aorta cm IVSd (0.7-1.1cm) RV (D) 4.4 (1.8-2.4cm) Mitral Valve Mitral Mitral Stenosis E wave 0.58m/s MV Mean GR. mmHg A wave 0.64m/s MV Peak GR. mmHg E/A ratio 0.9 2D MVA cm2 DECEL Time 296ms PRESS 1/2 Time ms Aortic Valve Aortic Valve Aortic Stenosis V1 0.79m/s AO Mean GR. 2mmHg V2 1.05m/s AO Peak GR. 4mmHg LVOT Diameter 1.9 (1.8-2.4cm) Doppler SANDRA 2.13cm2 Tricuspid Valve TR Velocity 2.80m/s RVSP 34mmHg Other Information Quality : Limited Rhythm : Technically limited study due to body habitus. Conclusion Technically difficult study. Difficult acoustic windows. Limited acoustic windows and were used Concentric LVH with right ventricular enlargement. Limited acoustic windows did not reveal parasternal views. Left atrium appears to be mildly enlarged. Valves appear to be structurally normal. Left ventricular EF of 55%. Right ventricular function appears slightly diminished. There is a lateral free wall hypokinesis. EF is about 40% of the right ventricle. There is [id number] tricuspid insufficiency. No pericardial effusion masses or vegetations discernible. Condition at Discharge: Guarded Final Diagnosis/Problems List # Dizziness and lightheadedness likely due to hypotension # Hypotension, likely due to hypovolemia/drug-induced # History of heart failure with reduced ejection fraction # Paroxysmal atrial fibrillation with secondary hypercoagulable state, currently in sinus rhythm # History of hypertension # History of gout # History of hypothyroidism # History of dyslipidemia # History of obstructive sleep apnea # Possible aphthous ulcer # Maculopapular rashes Discharge Disposition: Home Discharge Statement: "Patient was advised to return to the ER or call 911 if any headaches, dizziness, shortness of breath, chest pain, abdominal pain, bleeding, fevers, or worsening of medical condition. Patient was counseled about treatment plan, medications, possible side effects, patientverbalized understanding. All questions were answered to the best of my ability. This discharge took greater then 30 minutes in planning, reviewing documentation, counseling the patient, and discussing with other team members." ASSESSMENT ASSESSMENT Assessment Date of Service: Nov 02, 2024 Billing Provider: SYED LUJAN MD Common Visit Codes: 38389-AZM/OBS DISCH DAY >30min ANGEL BUCK RESIDENT Nov 02, 2024 14:11 SYED LUJAN MD Nov 03, 2024 15:46
--- NOTE | 2024-11-02 14:27 | DVHSR ---
APPROVED REPORT EXAM: Two-dimensional and M-mode echocardiogram with Doppler and color Doppler. Blood Pressure: 98/70 mmHg INDICATION Dizziness RISK FACTORS Obesity: Height: 5'11", Weight: 235 DIMENSIONS LVDd (3.8-5.7cm)LA (2D)3.7 (1.9-4.0cm)Aortic Root (2.0-3.7cm) EF (%) 58.0 (55-70%)Rt. Atrium3.9 (1.9-4.0cm)Asc. Aorta cm IVSd (0.7-1.1cm)RV (D)4.4 (1.8-2.4cm) Mitral Valve MitralMitral Stenosis E wave0.58m/sMV Mean GR.mmHg A wave0.64m/sMV Peak GR.mmHg E/A ratio0.92D MVAcm2 DECEL [id number] 1/2 [place] Aortic Valve Aortic ValveAortic Stenosis V10.79m/Nelli Mean GR.2mmHg V21.05m/Nelli Peak GR.4mmHg LVOT Diameter1.9 (1.8-2.4cm)Doppler AVA2.13cm2 Tricuspid Valve TR Velocity2.80m/s [id number] Other Information Quality : LimitedRhythm : Technically limited study due to body habitus. Conclusion Technically difficult study. Difficult acoustic windows. Limited acoustic windows and were used Concentric LVH with right ventricular enlargement. Limited acoustic windows did not reveal parastern al views. Left atrium appears to be mildly enlarged. Valves appear to be structurally normal. Left ventricular EF of 55%. Right ventricular function appears slightly diminished. There is a late ral free wall hypokinesis. EF is about 40% of the right ventricle. There is [id number] tricuspid insufficiency. No pericardial effusion masses or vegetations discernible.
== END 2024-11-02 16:40 | disposition home or self-care (01) | DRG 207 ==
LOC: ER 15:38 → TELE 22:51 → TELE-WESTW 23:40
PROVIDERS: ADMIT Student in an Organized Health Care Education/Training Program; ATTEND Student in an Organized Health Care Education/Training Program
DX: I95.2 Hypotension due to drugs (principal); D68.59 Other primary thrombophilia; I50.22 Chronic systolic (congestive) heart failure; I11.0 Hypertensive heart disease with heart failure; E03.9 Hypothyroidism, unspecified; I48.0 Paroxysmal atrial fibrillation; E11.9 Type 2 diabetes mellitus without complications; E86.1 Hypovolemia; I25.2 Old myocardial infarction; E78.5 Hyperlipidemia, unspecified; F32.A Depression, unspecified; G47.33 Obstructive sleep apnea (adult) (pediatric); Z20.822 Contact with and (suspected) exposure to COVID-19; K12.0 Recurrent oral aphthae; M10.9 Gout, unspecified; T50.905A Adverse effect of unspecified drugs, medicaments and biological substances, initial encounter; Y92.89 Other specified places as the place of occurrence of the external cause
CPT/HCPCS: 36415; 70450; 71045; 80048; 80053; 80307; 81001; 82962; 83690; 83735; 83880; 84100; 84443; 84484; 85025; 87040; 87426; 87804; 93005; 93306; 94640; 99291; G0378